=== PATIENT | male | born 1975 | race Caucasian/White ===

== ENCOUNTER → 2019-03-04 | Outpatient (CLI) | payer BC ==
--- NOTE | 2019-03-04 19:14 | CT ---
EXAM: CT Abdomen Without And With Intravenous Contrast CLINICAL HISTORY: The patient is 43 years old and is Male; RUQ TENDERNESS TECHNIQUE: Axial computed tomography images of the abdomen without and with intravenous contrast. Sagittal and coronal reformatted images were created and reviewed. This CT exam was performed using one or more of the following dose reduction techniques: automated exposure control, adjustment of the mA and/or kV according to patient size, and/or use of iterative reconstruction technique. COMPARISON: August 19, 2014 FINDINGS: Lung bases: Unremarkable. No mass. No consolidation. Liver: Diffuse low-attenuation throughout the liver consistent with hepatocellular disease/fatty infiltration. No focal liver lesion seen. Gallbladder and bile ducts: Unremarkable. No calcified stones. No ductal dilation. Pancreas: Unremarkable. No mass. No ductal dilation. Spleen: Unremarkable. No splenomegaly. Adrenals: Unremarkable. No mass. Kidneys and ureters: 3 mm calculus within the right renal midportion and right renal lower pole. Punctate calculus in the left renal midportion. No hydronephrosis. No ureteral calculus in the visualized portions. Stomach and bowel: Visualized bowel within normal limits. No obstruction. No mucosal thickening. Appendix: The appendix is seen and is within normal limits Intraperitoneal space: Unremarkable. No free air. No significant fluid collection. Bones/joints: No acute fracture. No dislocation. Soft tissues: Unremarkable. Vasculature: Unremarkable. No abdominal aortic aneurysm. Lymph nodes: Unremarkable. No enlarged lymph nodes. IMPRESSION: 1. No acute intra-abdominal abnormality. 2. Bilateral nonobstructive nephrolithiasis. 3. Hepatic steatosis. Electronically signed by: Chapo Red MD 03/04/2019 7:11 PM CDT
== END ==
LOC: LAB.O 17:23
PROVIDERS: ATTEND Nurse Practitioner Family
DX: N20.0 Calculus of kidney (principal); K76.0 Fatty (change of) liver, not elsewhere classified

== ENCOUNTER 2020-04-15 16:38 | Emergency (ER) | payer BC ==
[2020-04-15] MEDS ORDERED: diphenhydrAMINE HCL 25 MG CAP PO ONE (16:44)
[2020-04-15] MEDS ORDERED: predniSONE 20 MG TAB PO ONE (16:45)
--- NOTE | 2020-04-15 16:49 | ED.PDOC ---
History of Present Illness - General Time Seen by Provider: 04/15/20 16:44 Additional Information: 44 male patient, with no medical problems, vaccines up-to-date denies cigarettes alcohol or drugs, patient presents to the ER because of possible insect bite, patient stated that he felt like a sting on his left eyebrow, and then noticed some swelling, now he feels like the right periorbital area is also become a little swollen Patient denies chest pain denies shortness of breath denies nausea vomiting diarrhea or neuro concerns no previous history allergies Feels like he was bitten by an insect but could not tell me what kind He thinks that it could have been a wasp - History of Present Illness Improving Factors: nothing Worsening Factors: nothing Associated Symptoms: denies symptoms Allergies/Adverse Reactions: Allergies NO KNOWN ALLERGY Allergy (Verified 04/15/20 16:57) Home Medications: Ambulatory Orders Cephalexin Monohydrate [Keflex] 500 mg PO BID #14 cap 04/15/20 Cetirizine HCl [ZyrTEC] 10 mg PO BIW #20 tab 04/15/20 predniSONE 20 mg PO DAILY #5 tab 04/15/20 Review of Systems - Review of Systems Constitutional: States: no symptoms reported EENTM: States: no symptoms reported Respiratory: States: no symptoms reported Cardiology: States: no symptoms reported Gastrointestinal/Abdominal: States: no symptoms reported Genitourinary: States: no symptoms reported Musculoskeletal: States: no symptoms reported Skin: States: no symptoms reported Neurological: States: no symptoms reported Endocrine: States: no symptoms reported Hematologic/Lymphatic: States: no symptoms reported Past Medical History (General) - Patient Medical History Hx Seizures: No Hx Stroke: No Hx Dementia: No Hx Asthma: No Hx of COPD: No Hx Cardiac Disorders: No Hx Congestive Heart Failure: No Hx Pacemaker: No Hx Hypertension: No Hx Thyroid Disease: No Hx Diabetes: No Hx Gastroesophageal Reflux: No Hx Renal Disease: No Hx Cancer: No Hx of HIV: No Hx Hepatitis C: No Hx MRSA: No - Vaccination History Hx Influenza Vaccination: Yes - Social History Hx Tobacco Use: No Hx Alcohol Use: No - Female History Patient : No Family Medical History - Family History Mother Family History: Unknown Physical Exam - Physical Exam General Appearance: Alert, Well Developed, Well Groomed, Well Hydrated Eye Exam: bilateral normal, bilateral other - Bilateral peripatellar swelling more pronounced on the left, the eye was intact without hyphema chemosis proptosis no evidence of allergic reaction noted patient is Ears, Nose, Throat: hearing grossly normal, normal ENT inspection, normal pharynx Neck: non-tender, full range of motion Respiratory: chest non-tender, lungs clear, normal breath sounds, no respiratory distress Cardiovascular/Chest: normal peripheral pulses, regular rate, rhythm, no edema, no gallop, no JVD, no murmur Gastrointestinal/Abdominal: normal bowel sounds, non tender, soft, no organomegaly, no pulsatile mass Extremity: normal range of motion, non-tender, normal inspection, no pedal edema, no calf tenderness Neurologic: nuclear pharmacist II-XII nml as tested, no motor/sensory deficits, alert, normal mood/affect, oriented x 3 Skin Exam: normal color, warm/dry, cyanosis Lymphatic: no adenopathy Progress - Progress Progress: 04/15/20 16:59This is a patient presents with an allergic reaction to possible insect bite, patient denies any eating anything different or change in deodorant or perfume or cologne, patient does have a shortness of breath respiratory distress on physical exam I did not notice any new or swelling and no stridor, I suspect that this is an allergic reaction given the fact that there is periorbital swelling the eye appears intact on the left side, and it seems like the right side is becoming swollen as well, will suggest more like an allergic reaction probably to exposure to some sort of insect bite. Since patient does not appear to have anaphylactic shock or anaphylaxis, patient will receive a dose of steroids Benadryl and Pepcid, and will be discharged home [facility], still take and follow-up primary care physician Told the patient that if he noticed that the area is getting red painful it may suggest a cellulitis then he will need antibiotics, given the prescription for antibiotics but told not to fill it unless there are signs of infection Departure - Departure Clinical Impression: Insect bites Qualifiers: Encounter type: initial encounter Site of insect bite: head Site of insect bite of head: other part Qualified Code(s): S00.96XA - Insect bite (nonvenomous) of unspecified part of head, initial encounter; W57.XXXA - Bitten or stung by nonvenomous insect and other nonvenomous arthropods, initial encounter Allergic reaction Qualifiers: Encounter type: initial encounter Qualified Code(s): T78.40XA - Allergy, unspecified, initial encounter Disposition: Discharge to Home or Self Care Instructions: DI for Insect Bites and Stings, Hives, Skin Rash Diet: resume usual diet Referrals: Angus Pedro MD [Primary Care Provider] - 1-2 Weeks Prescriptions: Cephalexin Monohydrate [Keflex] 500 mg PO BID #14 cap Cetirizine HCl [ZyrTEC] 10 mg PO BIW #20 tab predniSONE 20 mg PO DAILY #5 tab Home Medications: Ambulatory Orders Cephalexin Monohydrate [Keflex] 500 mg PO BID #14 cap 04/15/20 Cetirizine HCl [ZyrTEC] 10 mg PO BIW #20 tab 04/15/20 predniSONE 20 mg PO DAILY #5 tab 04/15/20 Additional Instructions: You may use Zyrtec twice a day if no improvement, return to the ER immediately shortness of breath nausea vomiting confusion altered mental status increased work of breathing or any other concern
[2020-04-15 16:57] VITALS: BP 155/103; TEMP 98; O2SAT 96
[2020-04-15] MEDS ORDERED: FAMOTIDINE 20 MG TAB PO SCH (17:00)
== END 2020-04-15 17:17 | disposition home or self-care (01) ==
LOC: ER 16:38
DX: S00.96XA Insect bite (nonvenomous) of unspecified part of head, initial encounter (principal); T78.40XA Allergy, unspecified, initial encounter; Y92.9 Unspecified place or not applicable
CPT/HCPCS: J7512; Q0163

== ENCOUNTER → 2020-12-01 | Outpatient (CLI) | payer BC ==
--- NOTE | 2020-12-01 22:46 | RAD ---
EXAM DESCRIPTION: Chest,2 Views: CR/ CLINICAL HISTORY: 45 years Male COVID-19 COMPARISON: Two-view AP and lateral chest x-ray June 2009 TECHNIQUE: Two views. PA and Lateral. FINDINGS: Lungs: Infiltrates in the subpleural lateral right lung more than left and possibly left base. Not seen on the prior study. Moderate expansion of the lungs. Minimal perihilar peribronchial wall cuffing. Pleural spaces: No acute process. Heart: Borderline cardiomegaly. Pulmonary Vascularity: Not increased. Mediastinum: Not widened. Aorta: Unremarkable. Bony Thorax/Spine: No acute bony thoracic abnormalities. Wedge deformity of T7 or T8 is stable since the prior study. IMPRESSION: Patchy subpleural peripheral infiltrates. Commonly reported imaging features of COVID-19 pneumonia are present. Other processes such as influenza pneumonia and organizing pneumonia, as can be seen with drug toxicity and connective tissue disease, can cause similar imaging pattern. Electronically signed by: Malvin Connor MD 12/01/2020 10:44 PM [facility]
== END ==
LOC: LAB.O 09:00
PROVIDERS: ATTEND Family Medicine
DX: U07.1 COVID-19 (principal); R91.8 Other nonspecific abnormal finding of lung field